=== PATIENT | male | born 1985 | race Caucasian/White ===

== ENCOUNTER 2022-08-04 06:41 | Emergency (ER) | payer OTHER, BC ==
[2022-08-04 10:22] VITALS: BP 150/90; PULSE 85
== END 2022-08-04 09:52 | disposition home or self-care (01) ==
LOC: JD.ED 06:41
DX: S39.012A Strain of muscle, fascia and tendon of lower back, initial encounter (principal); F17.290 Nicotine dependence, other tobacco product, uncomplicated; V43.53XA Car driver injured in collision with pick-up truck in traffic accident, initial encounter; Y92.410 Unspecified street and highway as the place of occurrence of the external cause; Z79.899 Other long term (current) drug therapy
CPT/HCPCS: 72192; 72192-26; 99283